=== PATIENT | male | born 1950 | race Caucasian/White ===

== ENCOUNTER 2017-04-12 10:04 | Inpatient (IN) | payer MEDICARE ==
[~2017-04-12] VITALS: Ht 167.6 cm; Wt 78.1 kg
[~2017-04-12 10:04] MED LIST changes: -ASPI-99 PO; -HYDR-3580 PO
[2017-04-22 07:43] VITALS: BP 167/89; PULSE 64; RESP 20; TEMP 98.4; O2SAT 99
[2017-04-22] MEDS ORDERED: ceFAZolin 2 GM PREMIX 50 ML ONE (08:33)
[2017-04-22] MEDS ORDERED: GENTAMICIN SULFATE 80 MG/2 ML VIAL ONE (08:33)
[2017-04-22] MEDS ORDERED: BISACODYL 10 MG SUPP RECTAL PRN (09:30)
[2017-04-22] MEDS ORDERED: Post-op Orders (for Pharmacy) MISC XX ONE (09:30)
[2017-04-22] MEDS ORDERED: ONDANSETRON HCL 4 MG/2 ML VIAL IVP PRN (09:30)
[2017-04-22] MEDS ORDERED: ZOLPIDEM TARTRATE 5 MG TAB PO PRN (09:30)
[2017-04-22] MEDS ORDERED: SODIUM CHLORIDE 0.9% FLUSH 5 ML FLUSH IVF PRN (09:30)
[2017-04-22] MEDS ORDERED: MORPHINE SULFATE 8 MG/ML INJ IV PUSH PRN (09:30)
[2017-04-22] MEDS ORDERED: ACETAMINOPHEN/HYDROcodone 325 MG/7.5 MG TAB PO PRN ×2 (09:30)
[2017-04-22] MEDS ORDERED: MAGNESIUM HYDROXIDE SUSP 30 ML CUP PO PRN (09:30)
[2017-04-22] MEDS ORDERED: TRANEXAMIC ACID INJ 0 MG in SODIUM CHLORIDE 0.9% INJ 100 ML IV SCH (09:30)
[2017-04-22] MEDS ORDERED: ACETAMINOPHEN 1000 MG/100 ML VIAL IV ONE (09:33)
[2017-04-22] MEDS ORDERED: FAMOTIDINE 20 MG/2 ML VIAL ONE (09:33)
[2017-04-22] MEDS ORDERED: fentaNYL CITRATE 250 MCG/5 ML AMP ONE (09:33)
[2017-04-22] MEDS ORDERED: MIDAZOLAM HCL 2 MG/2 ML VIAL ONE (09:33)
[2017-04-22] MEDS ORDERED: DEXAMETHASONE SOD PHOS 4 MG/ML VIAL ONE (09:33)
[2017-04-22] MEDS ORDERED: ASPI-99 PO (09:36)
--- NOTE | 2017-04-22 09:38 | HHI.FF ---
Face to Face Verification Diagnosis: (1) Status post total hip replacement, right Physical Therapy Gait training Hip: Total hip, Protocol: Right, Posterior hip precautions, Progress to weight bearing Canvas Knee Splint: When in bed & 2 pillows btw thighs (for 2 months postop.) Right LE Weight Bearing: WB as tolerated Right LE Range of Motion: Active ROM Nursing Nursing: Dressing changes Dressing Changes: Daily dressing change, Coverderm/Primapore Additional Instructions Remove steristrips on postop day 14. I have seen patient Jaskaran Brown on 04/22/17. My clinical findings support the need for the requested home health care services because: Ltd mobility - disease progression Limited ability to care for self High risk of falls I certify that my clinical findings support that this patient is homebound because: Post-op weakness Unsteady gait/balance Unsafe to leave home unassisted Pascale Valles MD (Charles) Apr 22, 2017 09:38
[2017-04-22] MEDS ORDERED: CHLORHEXIDINE GLUCONATE 4% SOLN 120 ML BTL TOPICAL SCH (09:45)
[2017-04-22] MEDS ORDERED: ceFAZolin 2 GM PREMIX 50 ML IV SCH (09:45)
[2017-04-22] MEDS ORDERED: EXPAREL PERI-ARTICULAR INJECTION (TOTAL VOL. 60 ML) P-ARTICULR SCH ×2 (09:45)
[2017-04-22] MEDS ORDERED: TRANEXAMIC ACID INJ 750 MG in SODIUM CHLORIDE 0.9% INJ 100 ML IV SCH ×4 (09:45)
[2017-04-22] MEDS ORDERED: NEOSTIGMINE 3 MG/3 ML SYR IV ONE (12:00)
[2017-04-22] MEDS ORDERED: LACTATED RINGER'S 1000 ML INJ 1,000 ML IV ONE (12:00)
[2017-04-22] MEDS ORDERED: ONDANSETRON HCL 4 MG/2 ML VIAL IV PUSH ONE (12:00)
[2017-04-22] MEDS ORDERED: PROPOFOL 200 MG/20 ML AMP IV ONE (12:00)
[2017-04-22] MEDS ORDERED: ePHEDrine/NS 25 MG/5 ML SYR IV ONE (12:00)
[2017-04-22] MEDS ORDERED: SODIUM CHLORID 0.9% 500 ML IV PRN (12:30)
[2017-04-22] MEDS ORDERED: INSULIN HUMAN REGULAR 1,000 UNITS/10 ML VIAL SQ PRN (12:30)
[2017-04-22] MEDS ORDERED: METOPROLOL TARTRATE 25 MG TAB PO PRN (12:30)
[2017-04-22] MEDS ORDERED: LACTATED RINGER'S 1000 ML IV PRN (12:30)
[2017-04-22] MEDS ORDERED: CHLORHEXIDINE GLUCONATE 2 % 1 PACK (2 CLOTHS) TOPICAL PRN (12:30)
[2017-04-22] MEDS ORDERED: POVIDONE IODINE 5% (ANTISEPSIS KIT) 4 APPLICATIONS EACH NARE PRN (12:30)
[2017-04-22] MEDS ORDERED: *MEPERIDINE 25 MG INJ VIAL PERIprocedural Use ONLY ONE (12:43)
[2017-04-22] MEDS ORDERED: DO NOT ADM ANY ANTICOAGULANT DRUGS PRN (12:45)
[2017-04-22] MEDS: LACTATED RINGER'S 1000 ML INJ 1,000 ML IV SCH ×2 (12:52→21:53)
[2017-04-22] MEDS: KETOROLAC TROMETHAMINE 30 MG/ML (IVP) VIAL IVP SCH ×3 (12:55→21:39)
--- NOTE | 2017-04-22 13:55 | PD.CONS ---
HPI Service [facility] Consult Requested By Dr. CIPRIANO Valles Reason for Consult Medical management Primary Care Physician Mich Lepe MD Diagnoses: History of Present Illness This is a 66-year-old male complaining of right hip pain affecting his activities of daily living secondary to osteoarthritis. He underwent hip arthroplasty by Dr. Isis Valles who requested consultation to evaluate and manage multiple medical conditions. Anesthesia records reviewed. He was hemodynamically stable. Received 1300 mL crystalloid and EBL of 250 mL. Urine output not measured. At this time, he complains of minimal hip pain. Patient has hypertension controlled on lisinopril and Toprol, arthritis and low back pain controlled on allopurinol and diclofenac. All other systems reviewed negative Review of Systems Except as stated in HPI: all other systems reviewed are Neg Past Family Social History Allergies: Coded Allergies: No Known Allergies (Unverified , 04/22/17) Past Medical History As previously mentioned Past Surgical History Right knee arthroscopy Reported Medications Fish Oil ([place]-3 Fatty Acids) 1,000 Mg Cap 1 Cap PO DAILY Vitamin B Complex (B-Complex Vitamins) 1 Tab 1 Tab PO DAILY Vitamin C (Ascorbic Acid) 100 Mg Tablet 1 Tab PO DAILY Diclofenac Potassium 50 Mg Tab 50 Mg PO BID Lisinopril 40 Mg Tab 40 Mg PO DAILY Allopurinol 300 Mg Tab 300 Mg PO DAILY Metoprolol Succinate ER 24 HR (Metoprolol Succinate) 50 Mg Tab 50 Mg PO HS Family History Rheumatoid arthritis Social History Drinks 1-2 beers a day quit tobacco 7 years ago [id number] smoking history Physical Exam Vital Signs Vital Signs Date Time Temp Pulse Resp B/P Pulse Ox O2 Delivery O2 Flow Rate FiO2 04/22/17 13:15 69 15 151/79 97 Nasal Cannula 2 04/22/17 13:00 68 15 152/73 96 Nasal Cannula 2 04/22/17 12:45 66 15 150/71 95 Nasal Cannula 2 04/22/17 12:30 67 15 142/67 95 Nasal Cannula 2 04/22/17 12:20 97.6 72 20 161/77 100 Simple Mask 8 04/22/17 07:43 98.4 64 20 167/89 99 Physical Exam GENERAL: This is a well-nourished, well-developed patient, in no apparent distress. SKIN: No rashes, ecchymoses or lesions. Cool and dry. HEAD: Atraumatic. Normocephalic. No temporal or scalp tenderness. EYES: Pupils equal round and reactive. Extraocular motions intact. No scleral icterus. No injection or drainage. ENT: Nose without bleeding, purulent drainage or septal hematoma. Throat without erythema, tonsillar hypertrophy or exudate. Uvula midline. Airway patent. NECK: Trachea midline. No JVD or lymphadenopathy. Supple, nontender, no meningeal signs. CARDIOVASCULAR: Regular rate and rhythm without murmurs, gallops, or rubs. RESPIRATORY: Clear to auscultation. Breath sounds equal bilaterally. No wheezes , rales, or rhonchi. GASTROINTESTINAL: Abdomen soft, non-tender, nondistended. No guarding. MUSCULOSKELETAL: Extremities without clubbing, cyanosis, or edema. Right lower extremity in a CKS NEUROLOGICAL: Awake and alert. Cranial nerves II through XII intact. Motor and sensory grossly within normal limits. Five out of 5 muscle strength in all muscle groups. Normal speech. Laboratory Preoperative records reviewed CBC, INR BMP, urinalysis unremarkable EKG tracing interpreted by me with sinus rhythm Q waves in the inferior Leads no previous EKG for comparison Laboratory Tests Test 04/22/17 07:40 Blood Type A POSITIVE Antibody Screen NEGATIVE Blood Bank Comment Assessment and Plan Assessment and Plan This is a 66-year-old male complaining of right hip pain affecting his activities of daily living secondary to osteoarthritis. He underwent hip arthroplasty by Dr. Isis Valles who requested consultation to evaluate and manage multiple medical conditions. Anesthesia records reviewed. He was hemodynamically stable. Received 1300 mL crystalloid and EBL of 250 mL. Urine output not measured. Stable continue postoperative care with physical therapy, wound care, incentive spirometry, DVT prophylaxis with aspirin and pain management with Lortab and IV morphine . Check H&H to monitor for postoperative anemia secondary to acute blood loss Hypertension. Controlled on lisinopril and Toprol. Continue to monitor Arthritis and low back pain. Stable on allopurinol. Pain management as above Alcohol abuse. Counseled. Monitor for withdrawal. Discussed Condition With Patient and nursing staff Greg Alvarez MD Apr 22, 2017 13:55
--- NOTE | 2017-04-22 14:22 | RADRPT ---
EXAM DATE/TIME: 04/22/2017 13:35 [facility] COMPARISON: No previous studies available for comparison. INDICATIONS : Post right hip replacement MEDICAL HISTORY : None. SURGICAL HISTORY : right hip ENCOUNTER: Initial ACUITY: 1 day PAIN SCORE: 7/10 LOCATION: Right hip FINDINGS: 2 views of the right hip following recent total hip arthroplasty demonstrates non-cemented femoral an d acetabular components in place. There are 2 acetabular screws. Soft tissue air is present. No unexp ected finding is identified. CONCLUSION: Expected findings are identified following recent right total hip arthroplasty. Desmond Erwin MD on April 22, 2017 at 14:20 Board Certified Radiologist. This report was verified electronically.
[2017-04-22 15:35] VITALS: BP 157/72; PULSE 80; RESP 20; TEMP 95.8; O2SAT 98
[2017-04-22 19:13] VITALS: BP 155/74; PULSE 76; RESP 18; TEMP 96.8; O2SAT 96
[2017-04-22] MEDS: SODIUM CHLORIDE 0.9% FLUSH 5 ML FLUSH IVF SCH (21:00)
[2017-04-22] MEDS ORDERED: METOPROLOL SUCCINATE 50 MG EXTENDED RELEASE TAB PO SCH (21:00)
[2017-04-22 23:01] VITALS: BP 120/68; PULSE 89; RESP 18; TEMP 97.3; O2SAT 97
[2017-04-23] MEDS: KETOROLAC TROMETHAMINE 30 MG/ML (IVP) VIAL IVP SCH ×2 (03:55→08:34)
[2017-04-23 04:05] VITALS: BP 125/62; PULSE 76; RESP 18; TEMP 97.1; O2SAT 98
--- NOTE | 2017-04-23 06:21 | PD.ORT.PN ---
Subjective Post Op Day #: 1 Subjective Remarks He is doing well. There is almost no pain. He is anxious to start PT. Distance Walked 5 feet, 6 times with PT. Objective Vitals Vital Signs Date Time Temp Pulse Resp B/P Pulse Ox O2 Delivery O2 Flow Rate FiO2 04/23/17 04:05 97.1 76 18 125/62 98 04/22/17 23:01 97.3 89 18 120/68 97 04/22/17 19:13 96.8 76 18 155/74 96 04/22/17 15:35 95.8 80 20 157/72 98 04/22/17 14:45 97.8 78 16 140/75 96 Room Air 04/22/17 14:00 75 16 142/75 95 Room Air 04/22/17 13:55 15 04/22/17 13:55 15 04/22/17 13:45 72 16 145/78 100 Nasal Cannula 2 04/22/17 13:30 97.5 70 15 149/83 98 Nasal Cannula 2 04/22/17 13:15 69 15 151/79 97 Nasal Cannula 2 04/22/17 13:00 68 15 152/73 96 Nasal Cannula 2 04/22/17 12:45 66 15 150/71 95 Nasal Cannula 2 04/22/17 12:30 67 15 142/67 95 Nasal Cannula 2 04/22/17 12:20 97.6 72 20 161/77 100 Simple Mask 8 04/22/17 07:43 98.4 64 20 167/89 99 I/O 04/22/17 04/22/17 04/22/17 04/23/17 04/23/17 04/23/17 07:00 15:00 23:00 07:00 15:00 23:00 Intake Total 1450 ml 360 ml 360 ml Output Total 250 ml 325 ml 600 ml Balance 1200 ml 35 ml -240 ml Intake Oral 360 ml 360 ml IV Total 150 ml Other 1300 ml Output Urine Total 325 ml 600 ml Estimated Blood Loss 250 ml # Voids 0 # Bowel Movements 0 0 Imaging Last 72 hours Impressions Hip X-Ray 04/22/17 0000 Signed Impressions: Service Date/Time: Saturday, April 22, 2017 13:35 - CONCLUSION: Expected findings are identified following recent right total hip arthroplasty. Desmond Erwin MD Objective Remarks He is resting comfortably, supine in bed. The dressing is dry and intact. The neurovascular status is intact. Assessment & Plan Ortho Post Op Day #: 1 Problem List: (1) Status post total hip replacement, right Plan: Continue postop care and PT. Assessment and Plan Condition: Good. Orthopaedically stable. DVT prophylaxis: ASA, TEDs, sequentials. Discharge plans: Home with [facility]. Has appointment. Rx: Valme[place] 7.5/325. Pascale Valles MD (Charles) Apr 23, 2017 06:21
[2017-04-23] MEDS ORDERED: HYDR-3580 PO (06:23)
[2017-04-23 07:00] LABS: HEMATOCRIT 34.8 % (39.0-51.0); REVIEW FLAG FINAL
[2017-04-23 08:00] VITALS: BP 139/69; PULSE 73; RESP 18; TEMP 97; O2SAT 99
[2017-04-23] MEDS: SODIUM CHLORIDE 0.9% FLUSH 5 ML FLUSH IVF SCH (08:35)
[2017-04-23] MEDS ORDERED: ALLOPURINOL 300 MG TAB PO SCH (09:00)
[2017-04-23] MEDS ORDERED: ASCORBIC ACID 500 MG TAB PO SCH (09:00)
[2017-04-23] MEDS ORDERED: LISINOPRIL 20 MG TAB PO SCH (09:00)
[2017-04-23] MEDS ORDERED: VITAMIN B COMPLEX/VIT C TAB PO SCH (09:00)
[2017-04-23] MEDS ORDERED: NON-FORMULARY DRUG (Omega-3 Fatty Acids (Fish Oil) 1 CAP) PO SCH (09:00)
[2017-04-23 09:48] VITALS: O2SAT 99
--- NOTE | 2017-04-23 10:17 | HHI.PR ---
Subjective Remarks Follow-up orthopedic surgery. States he is doing okay ambulating with walker. Controlled pain. He is being discharged today Objective Vitals Vital Signs Date Time Temp Pulse Resp B/P Pulse Ox O2 Delivery O2 Flow Rate FiO2 04/23/17 09:48 99 04/23/17 08:00 97.0 73 18 139/69 99 04/23/17 04:05 97.1 76 18 125/62 98 04/22/17 23:01 97.3 89 18 120/68 97 04/22/17 19:13 96.8 76 18 155/74 96 04/22/17 15:35 95.8 80 20 157/72 98 04/22/17 14:45 97.8 78 16 140/75 96 Room Air 04/22/17 14:00 75 16 142/75 95 Room Air 04/22/17 13:55 15 04/22/17 13:55 15 04/22/17 13:45 72 16 145/78 100 Nasal Cannula 2 04/22/17 13:30 97.5 70 15 149/83 98 Nasal Cannula 2 04/22/17 13:15 69 15 151/79 97 Nasal Cannula 2 04/22/17 13:00 68 15 152/73 96 Nasal Cannula 2 04/22/17 12:45 66 15 150/71 95 Nasal Cannula 2 04/22/17 12:30 67 15 142/67 95 Nasal Cannula 2 04/22/17 12:20 97.6 72 20 161/77 100 Simple Mask 8 I/O 04/22/17 04/22/17 04/22/17 04/23/17 04/23/17 04/23/17 07:00 15:00 23:00 07:00 15:00 23:00 Intake Total 1450 ml 360 ml 360 ml Output Total 250 ml 325 ml 600 ml Balance 1200 ml 35 ml -240 ml Intake Oral 360 ml 360 ml IV Total 150 ml Other 1300 ml Output Urine Total 325 ml 600 ml Estimated Blood Loss 250 ml # Voids 0 # Bowel Movements 0 0 Result Diagram: 04/23/17 0600 Objective Remarks Well-developed, well-nourished in no distress Clear to auscultation equal in expansion Regular rate and rhythm Alert and oriented nonfocal A/P Assessment and Plan This is a 66-year-old male complaining of right hip pain affecting his activities of daily living secondary to osteoarthritis. He underwent hip arthroplasty by Dr. Isis Valles who requested consultation to evaluate and manage multiple medical conditions. Anesthesia records reviewed. He was hemodynamically stable. Received 1300 mL crystalloid and EBL of 250 mL. Urine output not measured. Stable continue postoperative care with physical therapy, wound care, incentive spirometry, DVT prophylaxis with aspirin and pain management with Lortab and IV morphine . Postoperative anemia secondary to acute blood loss. Hemoglobin 11.9. He is asymptomatic. Continue to monitor Hypertension. Controlled on lisinopril and Toprol. Continue to monitor Arthritis and low back pain. Stable on allopurinol. Pain management as above Alcohol abuse. Counseled. Monitor for withdrawal. Discharge Planning Stable for discharge Greg Alvarez MD Apr 23, 2017 10:17
[2017-04-23] MEDS: LACTATED RINGER'S 1000 ML INJ 1,000 ML IV SCH (10:23)
[2017-04-23] MEDS ORDERED: ASPIRIN EC 81 MG TABEC PO SCH (11:00)
[2017-04-23 12:00] VITALS: BP 156/77; PULSE 66; RESP 18; TEMP 96; O2SAT 99
--- NOTE | 2017-04-23 16:01 | MP ---
cc: Stefanie ISAAC. DATE OF SURGERY: 04/22/2017 PREOPERATIVE DIAGNOSIS Primary osteoarthritis right hip. POSTOPERATIVE DIAGNOSIS Primary osteoarthritis right hip and calcific subcutaneous lesion, right hip. OPERATION: Total hip replacement, right hip. SURGEON Erin Isaac MD CONTENT PRODUCTION SPECIALIST: MARY Ham ANESTHESIA General endotracheal with supplemental local. INDICATIONS AND FINDINGS This 66-year-old man has had right hip pain for over a year. In the past 6-7 months, this has worsened substantially. He is limited to 1-1/4 mile ambulation tolerance because of the pain. He is concerned about his leg length. He also has had difficulty standing from a seated position and has pain on motion. Treatment has included anti-inflammatory agents, analgesics, activity modification, exercise, ambulatory aids. He has not responded to these. Physical findings showed limited range of motion of the hip. There is shortening in the right hip compared to the left. X-rays showed severe osteoarthritis with exposed subchondral bone being evidenced with [id number] appearance, significant osteophytes, subchondral cysts and subchondral sclerosis. Additionally noted there was some calcific or ossific material in the soft tissues above the greater trochanter seen on the AP views. Operative findings showed severe arthritis in the hip with a misshapen femoral head, marked osteophytes on the femur but also osteophytes on the acetabulum with exposed subchondral bone in both sides. Small degenerative cysts were identified. In addition, there was a calcific nodule that was approximately 30 millimeters in length by 10 millimeters in width by 5 millimeters in depth. This was either calcific or ossific and was subcutaneous right at the tip of where the incision was complete, in the posterior aspect of the hip. The prosthesis used was a Ilda prosthesis with the femur being a size 5 x 132 degree Accolade II stem with a Biolox Delta ceramic femoral head size 32 mm outer diameter with a neutral neck length. The acetabular component was a Tritanium hemispheric cluster cup size 52 mm outer diameter with a Trident X3 0 degrees polyethylene insert size 32 mm inner diameter, two screws were used, 125 mm and 120 mm. PROCEDURE The patient was brought to the clean air operating room and a general endotracheal anesthetic was administered. He was then placed in the lateral position with the right hip up and an axillary roll under the left shoulder. He was positioned on [facility] lateral positioner. The right hip was then prepped with alcohol, Hibiclens and ChloraPrep and draped in the usual manner with the hip draped free. An appropriate time out procedure was carried out. The skin incision was marked after prep. This went to the actual lesion. The incision was made from the lesion to the midportion of the greater trochanter. The was done after local anesthetic with Exparel carried out. The length of this was approximately 10-12 cm. The incision was deepened through the subcutaneous tissues to the upper portion of the fascia jarad and the gluteus fascia. The gluteus fascia was incised and split. A Charnley retractor was placed with wound towels. A retractor was placed under the abductors. The conjoined tendon of the piriformis and obturator external were released off the posterior superior aspect of the greater trochanter and reflected posteriorly. The capsulotomy was carried out longitudinally in line with the femoral neck and dissection carried out anteriorly and posteriorly at the glenoid and then carried distally along the posterior aspect of the inner trochanteric line behind the external rotators. The hip was then dislocated. The femoral neck was transected with the oscillating saw at the appropriate level. Femoral head was removed. Femoral preparation started with a box osteotome followed by canal finding curette and then broaching starting at size zero and going to one size increments to size five which was the templated size. When this was fully seated, calcar planing was carried out. The hip was repositioned. Acetabular preparation was initiated with removal of soft tissues with electrocautery followed by serial reaming starting at size 47 mm and going in 1 mm increments to size 51. A trial reduction with a 52 mm cup was not successful. This was reamed to size 52 mm and the cup seated very well and was stable. With the trial were removed, the acetabulum was cleaned with pulse lavage. Osteophytes were trimmed from the acetabulum. The acetabular component which is a 52 mm Tritanium cup was impacted into place and seated appropriately. Drill holes were made for screws and two screws were placed as noted above. The liner was then inserted. A trial reduction was then carried out with the trial prosthesis on the femur. This was a neutral neck length. The hip was reduced. It was taken through a range of motion which was excellent. The stability was excellent. There was no pistoning. It appeared that the leg lengths were corrected. The trial prosthesis was removed. The broach was removed. The medullary canal was cleaned with pulse lavage. Local anesthesia was administered about the anterior portion of the hip before placing the femoral component. The femoral component was then impacted into place and seated appropriately. A trial prosthesis was fitted on this with the same results as with the broach. Following this the trial prosthesis was removed. The trunnion was cleaned and dried. The femoral head which was a size 32 mm outer diameter neutral neck length Biolox Delta head was impacted onto the cleaned and dried trunnion. The hip was reduced. It was taken through a range of motion which showed excellent position and alignment. No pistoning, appropriate leg lengths and excellent stability. Wound closure then commenced using #1 Vicryl [place] sutures for closure of the capsule and external rotators to the posterior aspect of the greater trochanter. The upper portion of the capsule was closed with a #1 Vicryl continuous locking suture for the upper capsule. The gluteus fascia was repaired with #1 Vicryl interrupted [id number] sutures. The lesion at the top of the wound was palpated. This was fully subcutaneous and easily identifiable. This was then carefully and systematically removed from the subcutaneous area sharply with the scalpel. Hemostasis was carefully achieved with electrocautery. The remainder of the Exparel was injected into the superficial portion of the wound. The wound was then dressed with Steri-Strips followed by 4x4 and Medipore compression dressing. The patient is transferred to the recovery room in satisfactory condition having tolerated procedure well. Counts were correct. Specimens: Calcific lesion. MD MARGIE Olson/JEFF /12:06 PM /3:18 PM
[2017-04-23] MEDS ORDERED: DOCUSATE SODIUM 100 MG CAP PO SCH (21:00)
== END 2017-04-23 15:30 | disposition home health service (06) | DRG 470 ==
LOC: HSDI 04-22 07:02 → N06A 04-22 15:02
PROVIDERS: ADMIT Orthopaedic Surgery; ATTEND Orthopaedic Surgery
PROC: 0SR903A Replacement of Right Hip Joint with Ceramic Synthetic Substitute, Uncemented, Open Approach (ICD-10-PCS; principal; 2017-04-22 09:36)
DX: M16.11 Unilateral primary osteoarthritis, right hip (principal); I10 Essential (primary) hypertension; D62 Acute posthemorrhagic anemia; Z87.891 Personal history of nicotine dependence; M54.5 Low back pain; F10.10 Alcohol abuse, uncomplicated
CPT/HCPCS: 73502; 85014; 85018; 86850; 86900; 86901; 88304; 88305; 88311; 94150; C1776; C9290; J0131; J0690; J1100; J1580; J1885; J2175; J2250; J2405; J2710; J3010; J7120; L1830

== ENCOUNTER → 2017-04-12 | Outpatient (CLI) | payer MEDICARE ==
[~2017-04-12] MED LIST: ALLO300T2 PO; ASPI-99 PO; DICL50TA PO; FISH1000 PO; HYDR-3580 PO; LISI40TA PO; METO50TA11 PO; VITA100T53 PO; VITATAB11 PO
[2017-04-12 13:29] LABS: HEMATOCRIT 44.6 % (39.0-51.0); MEAN CELL VOLUME 102.1 FL (80.0-100.0); MEAN CORPUSCULAR HEMOGLOBIN 34.6 PG (27.0-34.0); MEAN CORPUSCULAR HGB CONC 33.9 % (32.0-36.0); PLATELET COUNT 164 TH/MM3 (150-450); RED BLOOD COUNT 4.37 MIL/MM3 (4.50-5.90); RED CELL DISTRIBUTION WIDTH 14.4 % (11.6-17.2); REVIEW FLAG FINAL; WHITE BLOOD COUNT 7.9 TH/MM3 (4.0-11.0)
[2017-04-12 13:31] LABS: BLOOD, URINE SMALL (NEG); COMMENT (UR) CULT NOT INDICATED; CULTURE IF INDICATED CULT NOT INDICATED; GLUCOSE,URINE NEG (NEG); KETONE, URINE NEG (NEG); MUCUS URINE FEW /lpf (OCC); NITRITE,URINE NEG (NEG); PH, URINE 5.5 (5.0-8.5); URINE COLOR YELLOW (YELLW/STRAW)
[2017-04-12 13:39] LABS: APTT (PATIENT) 25.6 SEC (24.3-30.1); PROTHROMBIN TIME - PATIENT 11.4 SEC (9.8-11.6)
[2017-04-12 13:58] LABS: BICARBONATE 29.8 MEQ/L (21.0-32.0); POTASSIUM 4.1 MEQ/L (3.5-5.1)
--- NOTE | 2017-04-12 14:27 | EKG ---
Date Performed: 04/12/2017 Time Performed: 09:07:30 PTAGE: 66 years EKG: Sinus rhythm INFERIOR MYOCARDIAL INFARCTION, PROBABLY OLD ABNORMAL ECG NO PREVIOUS TRACING DOCTOR: Mich Pan Interpretating Date/Time 04/12/2017 14:25:42
== END ==
LOC: CPRE 08:31
PROVIDERS: ATTEND Orthopaedic Surgery
DX: Z01.810 Encounter for preprocedural cardiovascular examination (principal); I10 Essential (primary) hypertension; M79.609 Pain in unspecified limb; Z01.812 Encounter for preprocedural laboratory examination; M16.11 Unilateral primary osteoarthritis, right hip
CPT/HCPCS: 36415; 80048; 81001; 85027; 85610; 85730; 93005